=== PATIENT | female | born 2000 | race Caucasian/White ===

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

== ENCOUNTER 2020-09-01 19:53 | Inpatient (IN) | payer MEDICAID, OTHER ==
[~2020-09-01] VITALS: Ht 160 cm; Wt 104.3 kg
[2020-09-01] MEDS ORDERED: LIDOCAINE HCL 1% 20ML VIAL (Pyxis) INJ INFIL SCH (22:15)
[2020-09-01] MEDS ORDERED: CARBOPROST TROMETHAMINE 250 MCG/ML AMPUL IM PRN (22:15)
[2020-09-01] MEDS ORDERED: METHYLERGONOVINE MALEATE 0.2 MG/ML IM PRN (22:15)
[2020-09-01] MEDS ORDERED: MISOPROSTOL 100MCG TABLET VG SCH (22:15)
[2020-09-01] MEDS ORDERED: DEXT 5%/LR + PITOCIN 20UNITS/L 1,000 ML IV SCH (22:15)
[2020-09-01] MEDS ORDERED: PENICILLIN G POTASSIUM 5 MMU in DEXT 5% WATER 100 ML IV SCH (22:45)
[2020-09-01] MEDS: LACTATED RINGERS 1,000 ML IV SCH (22:45)
[2020-09-01 23:56] LABS: BASOPHILS % 0.4 % (0.0-2.0); HEMATOCRIT. 25.8 % (36.0-48.0); HEMOGLOBIN. 8.1 g/dL (12.0-16.0); LYMPHOCYTES % 20.6 % (20.0-50.0); MEAN CORPUSCULAR HEMOGLOBIN 20.5 pg (28.0-32.0); MEAN CORPUSCULAR VOLUME 64.9 fL (81.0-99.0); MEAN PLATELET VOLUME 7.7 fl (7.4-10.4); MONOCYTES % 4.3 % (2.0-8.0); NEUTROPHILS % 73.7 % (40.0-76.0); PLATELET 347 x1000/uL (130-400); RED BLOOD CELL COUNT 3.97 mill/uL (4.2-5.4); RED CELL DISTRIBUTION WIDTH 19.4 % (11.6-14.6)
[2020-09-02 00:13] LABS: PARTIAL THROMBOPLASTIN TIME 24.2 sec (23.4-31.0); PROTHROMBIN TIME 10.3 sec (9.6-11.0)
[2020-09-02 00:30] LABS: CLARITY URINE CLEAR (CLEAR); COLOR URINE YELLOW (YELLOW); KETONES URINE NEGATIVE (NEGATIVE); LEUKOCYTE ESTERASE URINE 1+ (NEGATIVE); NITRITE URINE NEGATIVE (NEGATIVE); OCCULT BLOOD URINE NEGATIVE (NEGATIVE); PH URINE 7.5 (4.5-8.0); PROTEIN URINE NEGATIVE (NEGATIVE)
[2020-09-02 00:38] LABS: *COCAINE SCREEN URINE NEGATIVE (NEGATIVE); METHADONE URINE SCREEN NEGATIVE (NEGATIVE); OPIATES URINE SCREEN NEGATIVE (NEGATIVE)
[2020-09-02 00:39] LABS: *AMPHETAMINES SCREEN URINE NEGATIVE (NEGATIVE); *BARBITURATES SCREEN URINE NEGATIVE (NEGATIVE); *BENZODIAZEPINES SCREEN URINE NEGATIVE (NEGATIVE); PHENCYCLIDINE URINE SCREEN NEGATIVE (NEGATIVE)
[2020-09-02 00:42] LABS: CANNABINOID URINE SCREEN PRESUMTIVE POSITIVE (NEGATIVE)
[2020-09-02 00:52] LABS: HEPATITIS B SURFACE ANTIGEN NEGATIVE
[2020-09-02] MEDS: LACTATED RINGERS 1,000 ML IV SCH (01:33)
[2020-09-02] MEDS: BUTORPHANOL TARTRATE 2 MG/ML VIAL IV PRN ×2 (01:36→03:46)
[2020-09-02 02:50] LABS: PLATELET ESTIMATE NORMAL
[2020-09-02] MEDS ORDERED: PENICILLIN G POTASSIUM 2.5 MMU in DEXTROSE 5% WATER 50 ML IV SCH (03:00)
[2020-09-02] MEDS ORDERED: ROPIVACAINE HCL/PF EPIDURAL 200 ML EPI SCH (04:15)
[2020-09-02] MEDS ORDERED: ACETAMINOPHEN WITH CODEINE 300/30MG TABLET PO PRN (05:00)
[2020-09-02] MEDS ORDERED: BENZOCAINE/LANOLIN/ALOE VERA SPRAY TOP PRN (05:00)
[2020-09-02] MEDS ORDERED: BISACODYL 10MG SUPP PR PRN (05:00)
[2020-09-02] MEDS ORDERED: IBUPROFEN 400MG TABLET PO PRN (05:00)
[2020-09-02] MEDS ORDERED: DEXT 5%/LR + PITOCIN 20UNITS/L 1,000 ML IV SCH (05:00)
[2020-09-02] MEDS ORDERED: HEMORRHOIDAL SUPP PR PRN (05:00)
[2020-09-02] MEDS ORDERED: LANOLIN OINT 7GM TUBE TOP PRN (05:00)
[2020-09-02] MEDS ORDERED: GLYCERIN/WITCH HAZEL LEAF MEDICATED PAD TOP PRN (05:00)
[2020-09-02] MEDS ORDERED: DIPHENHYDRAMINE 25MG CAPSULE PO PRN (05:00)
[2020-09-02 06:05] VITALS: BP 102/58
[2020-09-02] MEDS: IBUPROFEN 800MG TABLET PO PRN ×2 (06:21→20:32)
[2020-09-02 06:35] VITALS: BP 112/65
[2020-09-02 08:00] VITALS: BP 108/52
[2020-09-02] MEDS: PRENATAL VIT/FE FUMARATE/FA TABLET PO SCH (09:15)
[2020-09-02 16:00] VITALS: BP 94/46
[2020-09-02 20:00] VITALS: BP 107/61
[2020-09-02] MEDS ORDERED: DOCUSATE SODIUM 100MG CAPSULE PO SCH (21:00)
[2020-09-03 04:00] VITALS: BP 111/64
[2020-09-03 06:57] LABS: BASOPHILS % 0.3 % (0.0-2.0); EOSINOPHILS % 1.2 % (0.0-5.0); HEMATOCRIT. 23.6 % (36.0-48.0); HEMOGLOBIN. 7.2 g/dL (12.0-16.0); LYMPHOCYTES % 29.3 % (20.0-50.0); MEAN CORPUSCULAR HEMOGLOBIN 20.3 pg (28.0-32.0); MEAN CORPUSCULAR VOLUME 66.2 fL (81.0-99.0); MEAN PLATELET VOLUME 7.8 fl (7.4-10.4); MONOCYTES % 5.7 % (2.0-8.0); NEUTROPHILS % 63.5 % (40.0-76.0); PLATELET 301 x1000/uL (130-400); RED BLOOD CELL COUNT 3.56 mill/uL (4.2-5.4); RED CELL DISTRIBUTION WIDTH 19.6 % (11.6-14.6)
[2020-09-03] MEDS ORDERED: FERROUS SULFATE 325MG TABLET PO SCH (07:30)
[2020-09-03 08:00] VITALS: BP 116/64
[2020-09-03 09:42] VITALS: BP 111/64
[2020-09-03] MEDS: PRENATAL VIT/FE FUMARATE/FA TABLET PO SCH (09:42)
[2020-09-03] MEDS: IBUPROFEN 800MG TABLET PO PRN (09:42)
[2020-09-03] MEDS ORDERED: IBUP-1523 MT (10:33)
== END 2020-09-03 15:49 | disposition home or self-care (01) | DRG 560 ==
LOC: 8 EST LDRP 19:53 → OBSVTOIN 19:53 → 8EST 09-02 06:55
PROVIDERS: ADMIT Specialist; ATTEND Specialist
PROC: 10E0XZZ Delivery of Products of Conception, External Approach (ICD-10-PCS; principal; 2020-09-02)
PROC: 0HQ9XZZ Repair Perineum Skin, External Approach (ICD-10-PCS; 2020-09-02)
DX: O99.52 Diseases of the respiratory system complicating childbirth (principal); O99.214 Obesity complicating childbirth; E66.9 Obesity, unspecified; O99.02 Anemia complicating childbirth; D64.9 Anemia, unspecified; O99.324 Drug use complicating childbirth; O70.0 First degree perineal laceration during delivery; J45.909 Unspecified asthma, uncomplicated; F12.10 Cannabis abuse, uncomplicated; Z37.0 Single live birth; Z3A.38 38 weeks gestation of pregnancy
CPT/HCPCS: 36415; 80305; 80349; 81003; 85025; 86592; 86703; 86762; 86850; 86900; 87340; 99281; G0378; J0595; J2540; J2590; J3490; J7060